=== PATIENT | male | born 1995 | race Caucasian/White ===

== ENCOUNTER 2019-02-27 21:45 | Emergency (ER) | payer SELFPAY ==
[~2019-02-27] VITALS: Ht 177.8 cm; Wt 59.1 kg
[2019-02-27] MEDS ORDERED: VIIBRYD20 MG PO (22:01)
[2019-02-27 22:24] LABS: BASO % 0.4 % (0.0-2.0); EOS % 0.4 % (0-4.0); GRAN # 7.1 (1.4-6.5); GRAN % 75.3 % (42.2-75.2); HEMATOCRIT 40.5 % (42.0-52.0); HEMOGLOBIN 14.3 g/dl (13.5-18.0); LYMPH # 1.6 (1.2-3.4); LYMPH % 16.9 % (20.0-51.0); MEAN CELL VOLUME 88 fl (80.0-100.0); MEAN CORPUSCULAR HEMOGLOBIN 31 pg (27.0-31.0); MEAN CORPUSCULAR HGB CONC 35 g/dl (33.0-37.0); MEAN PLATELET VOLUME 9.9 fl (7.4-10.4); MONO # 0.6 (0.1-0.6); MONO % 6.5 % (1.7-9.3); PLATELET COUNT 216 K/mm3 (130-400); RED BLOOD COUNT 4.63 M/mm3 (4.20-5.60)
[2019-02-27 22:48] LABS: ALBUMIN 4.5 gm/dL (3.5-5.0); BILIRUBIN,TOTAL 0.6 mg/dL (0.0-1.0); CREATININE, serum 0.77 (0.66-1.25); POTASSIUM 4.2 mmol/L (3.4-5.0); TOTAL PROTEIN 7.4 gm/dL (6.4-8.2)
[2019-02-27 23:40] VITALS: BP 127/76; PULSE 97; TEMP 97.5
== END 2019-02-27 23:40 | disposition home or self-care (01) ==
LOC: COL.ER 21:45
PROVIDERS: Emergency Medicine
DX: T68.XXXA Hypothermia, initial encounter (principal); F90.9 Attention-deficit hyperactivity disorder, unspecified type; F41.9 Anxiety disorder, unspecified

== ENCOUNTER → 2019-08-25 | Outpatient (CLI) | payer BC ==
[~2019-08-25] MED LIST: VIIBRYD20 MG PO
== END ==
LOC: COL.RAD 15:09
DX: R10.9 Unspecified abdominal pain (principal)
CPT/HCPCS: Q9967